=== PATIENT | female | born 1935 | race Caucasian/White ===

== ENCOUNTER → 2016-08-03 | Emergency (ER) | payer BC ==
[~2016-08-03] MED LIST: ALBUTEROL SO4 2.5/IPRATROPIUM 0.5 INH SOL 3 ML VIAL.NEB. NEB ONE; OSELTAMIVIR PHOSPHATE 75 MG CAPSULE ONE; OSELTAMIVIR PHOSPHATE 75 MG CAPSULE PO ONE
[2016-08-03 16:46] VITALS: BP 123/61; PULSE 74; TEMP 97.5; BMI 26.2
--- NOTE | 2016-08-03 17:32 | PDOC ---
History of Present Illness - General Chief Complaint: Respiratory Stated Complaint: REF BY DOCTOR Time Seen by Provider: 08/03/16 17:22 History Source: Patient Exam Limitations: No Limitations - History of Present Illness Initial Comments: CHIEF COMPLAINT: 80 y/o afebrile female with PMH HLD and osteoporosis sent in by Dr. Mitchell to r/o pneumonia. HISTORY OF PRESENT ILLNESS: The patient states she's had a productive cough of green sputum and fever for the past 2 days. She states her fever was 101 at the highest. She started a Zpack yesterday from Dr. Mitchell but when he saw her in the office today he was concerned for flu and pneumonia. He wanted her to come here for an xray. She has been taking tylenol for the fever. She denies earache, SILVESTRE, neck pain, n/v/d, CP, SOB, abd pain, back pain, hematuria, dysuria. Vital signs on arrival are notable for O2 sat of 96% on RA. REVIEW OF SYSTEMS: GENERAL/CONSTITUTIONAL: +fever to 101. No weakness. No weight change. HEAD, EYES, EARS, NOSE AND THROAT: No change in vision. No ear pain or discharge. No sore throat. CARDIOVASCULAR: No chest pain or shortness of breath. RESPIRATORY: +productive cough of green sputum. No wheezing or hemoptysis. GASTROINTESTINAL: See history of present illness. GENITOURINARY: No dysuria, frequency, or change in urination. MUSCULOSKELETAL: No joint or muscle swelling or pain. No neck or back pain. SKIN: No rash or easy bruising. NEUROLOGIC: No headache, vertigo, loss of consciousness, or loss of sensation. PHYSICAL EXAM: GENERAL: The patient is awake, alert, and fully oriented, in no acute distress. She has a wet, congested cough. HEAD: Normal with no signs of trauma. ENT: Pupils equal, round and reactive to light, extraocular movements intact, sclera anicteric, conjunctiva clear. Neck supple. LUNGS: Diffuse expiratory wheezing with rhonchorous sounds in right lung salazar. Normal excursion. No respiratory distress or use of accessory muscles. CV: RRR, S1/S2, no MRG. Cap refill < 2 sec. ABDOMEN: Soft, non-distended, non-tender even to deep palpation, no hepatomegaly or splenomegaly, no masses. EXTREMITIES: Normal range of motion, no edema. NEUROLOGICAL: Normal speech, normal gait. CN II-XII grossly intact. PSYCH: Normal mood, normal affect. SKIN: Warm, dry, normal turgor, no rashes or lesions noted. Past History - Past Medical History Allergies/Adverse Reactions: Allergies Allergy/AdvReac Type Severity Reaction Status Date / Time Penicillins Allergy Rash Verified 08/03/16 16:41 "ALL NARCOTICS" AdvReac Severe Vomiting Uncoded 08/03/16 16:41 Home Medications: Ambulatory Orders Simvastatin 20 mg PO DAILY 08/23/11 Zolpidem Tartrate [Zolpidem Tartrate ER] 6.25 mg PO HS 08/23/11 Acetaminophen [Tylenol .Extra-Strength -] 1,000 mg PO Q8H PRN #0 tablet Ascorbic Acid [Vitamin C -] 500 mg PO DAILY tablet 03/11/16 Cholecalciferol (Vitamin D3) [Vitamin D3 -] 1,000 unit PO BID tab 03/11/16 Docusate Sodium [Colace -] 100 mg PO Q8H PRN #0 capsule 03/11/16 Heparin - 5,000 unit SQ BID vial 03/11/16 Hydroxyzine HCl [Atarax -] 25 mg PO HS tablet 03/11/16 Levothyroxine [Synthroid -] 50 mcg PO DAILY@0700 tablet 03/11/16 Loratadine [Claritin -] 10 mg PO DAILY tablet 03/11/16 Pantoprazole Sodium [Protonix -] 40 mg PO ACBK tablet.ec 03/11/16 Nitrofurantoin Macrocrystal [Nitrofurantoin] 100 mg PO BID #9 capsule 03/16/16 Tramadol HCl [Ultram] 50 mg PO QID PRN #20 tablet MDD 4 03/16/16 Oseltamivir Phosphate [Tamiflu -] 75 mg PO BID #10 capsule 08/03/16 Anemia: No Asthma: No Cancer: Yes (1981 BREAST CANCER R) Cardiac Disorders: No CVA: No COPD: No CHF: No Dementia: No Diabetes: No GI Disorders: Yes (HIATAL HERNIA , REFLUX) Disorders: No HTN: No Hypercholesterolemia: Yes Liver Disease: No Seizures: No Thyroid Disease: No - Surgical History Abdominal Surgery: No Appendectomy: No Cardiac Surgery: No Cholecystectomy: Yes Lung Surgery: No Neurologic Surgery: No Orthopedic Surgery: No - Psycho/Social/Smoking Cessation Hx Anxiety: No Suicidal Ideation: No Smoking Status: No Smoking History: Never smoked Have you smoked in the past 12 months: No Number of Cigarettes Smoked Daily: 0 Hx Alcohol Use: No Drug/Substance Use Hx: No Substance Use Type: None Hx Substance Use Treatment: No *Physical Exam - Vital Signs Last Vital Signs Temp Pulse Resp BP Pulse Ox 97.5 F L 74 20 123/61 96 08/03/16 16:39 08/03/16 16:39 08/03/16 16:39 08/03/16 16:39 08/03/16 16:39 ED Treatment Course - LABORATORY CBC & Chemistry Diagram: 08/03/16 17:44 08/03/16 18:00 Medical Decision Making - Medical Decision Making A/P: 80 y/o afebrile female here to r/o pneumonia and flu. Plan is as follows: 1. Influenza 2. CXR 3. Labs 4. Duoneb CXR IMPRESSION: No acute pathology. Influenza A - Positive Dr. Mitchell stated that if the CXR is negative, d/c to home with rx for tamiflu and instruct patient to continue with zpack. Repeat lung exam reveals slight expiratory wheezing at bases but much improved. Will send rx for tamiflu to the patient's pharmacy. Instructed her to continue taking the zpack and continue taking tylenol every 4 hours for fever. Pt instructed to return to the ER with any worsening or concerning symptoms. The patient verbalizes understanding of all instructions, has no further questions and is awaiting discharge. *DC/Admit/Observation/Transfer Diagnosis at time of Disposition: Influenza due to influenza virus, type A, human - Discharge Dispostion Disposition: HOME Condition at time of disposition: Improved - Referrals Referrals: Bladimir Mitchell MD [Primary Care Provider] - Call tomorrow - Patient Instructions Printed Discharge Instructions: DI for Influenza -- Adult Additional Instructions: Discharge INstructions: -You have the flu -A prescription for Tamiflu was sent to your pharmacy; please take as directed -Continue taking the Z-pack prescribed by Dr. Mitchell -Take tylenol every 4 hours for fever -Drink at least 64oz of water daily -Follow up with Dr. Mitchell tomorrow -Return to the ER immediately with any worsening or concerning symptoms
[2016-08-03 18:24] LABS: BASOPHIL 0.3 % (0-2.0); EOSINOPHIL 0.6 % (0-4.5); MCHC 32.6 g/dl (32.0-36.0); MEAN PLT VOLUME 8.3 fl (7.5-11.1); NEUTROPHILS 75.4 % (42.8-82.8); PLATELET COUNT 189 K/MM3 (134-434); RDW 14.7 % (11.6-15.6); WHITE BLOOD COUNT 4.8 K/mm3 (4.0-10.0)
[2016-08-03 18:54] LABS: ALBUMIN 3.5 g/dl (3.4-5.0); ALK PHOS 60 U/L (45-117); ANION GAP 14 (8-16); BILIRUBIN,TOTAL 0.3 mg/dL (0.2-1.0); CALCIUM 8.2 mg/dL (8.5-10.1); CO2 24 mmol/L (21-32); COCKROFT - GAULT 57.6725; CREATININE 0.7 mg/dL (0.55-1.02); GLUCOSE,RANDOM 89 mg/dL (74-106); SGPT/ALT 17 U/L (12-78)
[2016-08-03 19:09] LABS: SGOT/AST 24 U/L (15-37)
== END | disposition home or self-care (01) ==
LOC: JER 16:36
PROC: 3E0F7GC Introduction of Other Therapeutic Substance into Respiratory Tract, Via Natural or Artificial Opening (ICD-10-PCS; principal; 2016-08-03)
DX: J09.X2 Influenza due to identified novel influenza A virus with other respiratory manifestations (principal); E78.00 Pure hypercholesterolemia, unspecified; Z85.3 Personal history of malignant neoplasm of breast
CPT/HCPCS: 36415; 71020-TC; 80053; 83605; 85025; 87804; 94640; 99281-25

== ENCOUNTER 2018-04-17 07:15 | Emergency (ER) | payer OTHER, BC ==
[2018-04-17 07:42] VITALS: TEMP 98.1; BMI 25.6
--- NOTE | 2018-04-17 07:51 | PDOC ---
History of Present Illness - General Chief Complaint: Constipation Stated Complaint: CONSTIPATON Time Seen by Provider: 04/17/18 07:51 - History of Present Illness Initial Comments: 04/17/18 08:00 82 year old woman with a past medical history of osteoporosis, breast cancer ( 1981), hiatal hernia, hypothyroidism who presents with 1 week of constipation. The patient reports that she takes Colace daily but since feeling constipated she started taking Miralax for two times a day for 4 days. She reports that she has been able to pass 1 hard piece of stool like a "pebble" every day for past 5 days. The patient has had decreased appetite for the past 2 days. 1 day ago she tried to give herself a fleet enema but reports she did not know how to do it and does not feel that it was effective and caused her hemorrhoid to bleed. She denies any abdominal pain, fever, burning with urination, blood in urine or stool. PMHX: as in HPI PSHX: no abdominal surgeries, prior back surgery Meds: levothyroxine, simvastatin, hydroxyzine, ranitidine Allergies: penicillin Tob: none PCP: Peter Past History - Past Medical History Allergies/Adverse Reactions: Allergies Allergy/AdvReac Type Severity Reaction Status Date / Time Penicillins Allergy Rash Verified 08/03/16 16:41 "ALL NARCOTICS" AdvReac Severe Vomiting Uncoded 08/03/16 16:41 Home Medications: Ambulatory Orders Simvastatin 20 mg PO DAILY 08/23/11 Acetaminophen [Tylenol .Extra-Strength -] 1,000 mg PO Q8H PRN #0 tablet Ascorbic Acid [Vitamin C -] 500 mg PO DAILY tablet 03/11/16 Cholecalciferol (Vitamin D3) [Vitamin D3 -] 1,000 unit PO BID tab 03/11/16 Docusate Sodium [Colace -] 100 mg PO Q8H PRN #0 capsule 03/11/16 Levothyroxine [Synthroid -] 50 mcg PO DAILY@0700 tablet 03/11/16 hydrOXYzine HCL [Atarax -] 25 mg PO HS tablet 03/11/16 Ranitidine [Zantac -] 150 mg PO DAILY 04/17/18 Anemia: No Asthma: No Cancer: Yes (1981 BREAST CANCER R) Cardiac Disorders: No CVA: No COPD: No CHF: No Dementia: No Diabetes: No GI Disorders: Yes (HIATAL HERNIA , REFLUX) Disorders: No HTN: No Hypercholesterolemia: Yes Liver Disease: No Seizures: No Thyroid Disease: No - Surgical History Abdominal Surgery: No Appendectomy: No Cardiac Surgery: No Cholecystectomy: Yes Lung Surgery: No Neurologic Surgery: No Orthopedic Surgery: No - Immunization History Immunization Up to Date: Yes - Suicide/Smoking/Psychosocial Hx Smoking Status: No Smoking History: Never smoked Have you smoked in the past 12 months: No Number of Cigarettes Smoked Daily: 0 Information on smoking cessation initiated: No Hx Alcohol Use: No Drug/Substance Use Hx: No Substance Use Type: None Hx Substance Use Treatment: No *Physical Exam - Vital Signs Last Vital Signs Temp Pulse Resp BP Pulse Ox 98.1 F 91 H 16 145/83 99 04/17/18 07:23 04/17/18 07:23 04/17/18 07:23 04/17/18 07:23 04/17/18 07:23 - Physical Exam Comments: 04/17/18 12:13 GENERAL: Awake, alert, and fully oriented, in no acute distress HEAD: No signs of trauma, normocephalic, atraumatic EYES: EOMI, sclera anicteric, conjunctiva clear ENT: oropharynx clear without exudates. Moist mucosa NECK: Normal ROM, supple LUNGS: No distress, speaks full sentences, clear to auscultation bilaterally HEART: Regular rate and rhythm, normal S1 and S2, no murmurs, rubs or gallops, peripheral pulses normal and equal bilaterally. ABDOMEN: Soft, nontender, normoactive bowel sounds. No guarding, no rebound. No masses EXTREMITIES : Normal inspection, Normal range of motion, no edema. No clubbing or cyanosis. NEUROLOGICAL: Cranial nerves II through XII grossly intact. Normal speech, normal gait, no focal sensorimotor deficits SKIN: Warm, Dry, normal turgor, no rashes or lesions noted Moderate Sedation - Procedure Monitoring Vital Signs: Procedure Monitoring Vital Signs Temperature 98.1 F 04/17/18 07:23 Pulse Rate 91 H 04/17/18 07:23 Respiratory Rate 16 04/17/18 07:23 Blood Pressure 145/83 04/17/18 07:23 O2 Sat by Pulse Oximetry (%) 99 04/17/18 07:23 ED Treatment Course - LABORATORY CBC & Chemistry Diagram: 04/17/18 08:45 04/17/18 08:55 Medical Decision Making - Medical Decision Making 04/17/18 08:26 ED Course: consider constipation vs diverticulitis vs partial sbo vs hypothroidism sbo less likely as passing gas and small stool 04/17/18 10:02 labwork [address] CT 04/17/18 12:17 CT: w/ large hiatal hernia, ventral hernia, diverticulosis, no diverticulitis, moderate fecal retention Will discharge with mary patient f/u with pcp and GI *DC/Admit/Observation/Transfer Diagnosis at time of Disposition: Constipation - Discharge Dispostion Disposition: HOME Condition at time of disposition: Stable Decision to Admit order: No - Referrals Referrals: Bladimir Mitchell MD [Primary Care Provider] - - Patient Instructions Printed Discharge Instructions: DI for Constipation Additional Instructions: You were seen in the ED for complaints of constipation. In the ED you were evaluated with with labwork and imaging. Your results did not show any acute findings but were significant for increased stool burden. There does not appear to be an acute need for immediate hospitalization. You are advised to follow up with your Primary Care Physician within 1 week. Please follow up with your Air Analysis Technician within 1 week You have been sent home with a solution called [place] Grain that you should drink to allow a bowel movement. Follow the instructions on how to prepare and drink the solution below Return to the ED immediately if you experience abdominal pain, blood in the stool or urine, vomiting, fevers, inability to pass gas, chest pain or shortness of breath - Do not eat sold food 3-4 hours prior to drinking the solution. - Drink one 8 ounce glass every ten minutes until the entire bottle is consumed. You should complete drinking - Drink the preparation with a straw; this may make it easier to consume. You may add the flavor packet provided with the medication, but do not add any additional flavoring to the liquid. - After completing the laxative preparation, do not take any food or water for 1 -2 hours. - If you experience vomiting, stop drinking the preparation for 20-30 minutes then restart and finish the remainder of the preparation. If you are unable to finish the remainder of the bowel preparation due to vomiting , call your film sound engineer or return to the ED - Once you start to have a bowel movement you should stop drinking the solution. - Post Discharge Activity
[2018-04-17 09:00] LABS: HEMATOCRIT 36.7 % (32.4-45.2); HEMOGLOBIN 12.5 GM/dL (10.7-15.3); MCHC 34.2 g/dl (32.0-36.0); MEAN CELL VOLUME 93.6 fl (80-96); MEAN PLT VOLUME 7.8 fl (7.5-11.1); PLATELET COUNT 261 K/MM3 (134-434); RBC 3.92 M/mm3 (3.60-5.2); RDW 13.9 % (11.6-15.6); WHITE BLOOD COUNT 4.8 K/mm3 (4.0-10.0)
[2018-04-17 09:42] LABS: ALK PHOS 64 U/L (45-117); ANION GAP 8 MMOL/L (8-16); BILIRUBIN,TOTAL 0.7 mg/dL (0.2-1); BLOOD UREA NITROGEN 14 mg/dL (7-18); CALCIUM 9.5 mg/dL (8.5-10.1); CHLORIDE 107 mmol/L (98-107); CO2 28 mmol/L (21-32); CREATININE 0.8 mg/dL (0.55-1.3); GLUCOSE,RANDOM 93 mg/dL (74-106); SGOT/AST 19 U/L (15-37); SGPT/ALT 18 U/L (13-61); SODIUM 142 mmol/L (136-145); TOT PROT 7.1 g/dl (6.4-8.2)
--- NOTE | 2018-04-17 10:01 | PDOC ---
Attending Attestation - Resident Resident Name: Mariana Gurrola - ED Attending Attestation I have performed the following: I have examined & evaluated the patient, The case was reviewed & discussed with the resident, I agree w/resident's findings & plan, Exceptions are as noted - HPI HPI: 82 yo F history hypothyroid, hiatal hernia, osteoporosis presents with constipation. She states she has chronic constipation, however, it is much worse recently. She added miralax to her typical regimen but it has not helped. No recent illness. Denies fever. Normal PO intake. - Physicial Exam PE: GENERAL: Awake, alert, and fully oriented, in no acute distress HEAD: No signs of trauma EYES: PERRLA, EOMI, sclera anicteric, conjunctiva clear ENT: Auricles normal inspection, hearing grossly normal, nares patent, oropharynx clear without exudates. Moist mucosa NECK: Normal ROM, supple, no lymphadenopathy, JVD, or masses LUNGS: Breath sounds equal, clear to auscultation bilaterally. No wheezes, and no crackles HEART: Regular rate and rhythm, normal S1 and S2, no murmurs, rubs or gallops ABDOMEN: Firm, nondistended, nontender. Normoactive bowel sounds. No guarding, no rebound. No masses EXTREMITIES: Normal range of motion, no edema. No clubbing or cyanosis. No cords, erythema, or tenderness NEUROLOGICAL: Cranial nerves II through XII grossly intact. Normal speech, normal gait. Motor and sensation intact SKIN: Warm, Dry, normal turgor, no rashes or lesions noted. - Medical Decision Making Pt with change in bowel habits, no change in diet, no recent illness. Will obtain CT to r/o an acute process.
[2018-04-17] MEDS ORDERED: PEG3350/SOD SULF,BICARB,CL/KCL 4,000 ML SOLN.RECON PO ONE (12:00)
[2018-04-17 13:15] VITALS: BP 144/72; PULSE 86
== END 2018-04-17 13:14 | disposition home or self-care (01) ==
LOC: JER 07:15
DX: K59.00 Constipation, unspecified (principal); K44.9 Diaphragmatic hernia without obstruction or gangrene; K43.9 Ventral hernia without obstruction or gangrene; E03.9 Hypothyroidism, unspecified; E78.00 Pure hypercholesterolemia, unspecified; K21.9 Gastro-esophageal reflux disease without esophagitis; K57.90 Diverticulosis of intestine, part unspecified, without perforation or abscess without bleeding; Z85.3 Personal history of malignant neoplasm of breast
CPT/HCPCS: 36415; 74177-TC; 80053; 84443; 85027; 99284-25

== ENCOUNTER 2018-12-14 09:38 | Emergency (ER) | payer OTHER, BC ==
[2018-12-14 09:51] VITALS: BP 112/76; PULSE 74; TEMP 97.8; BMI 25.6
--- NOTE | 2018-12-14 09:57 | PDOC ---
History of Present Illness - General Chief Complaint: Constipation Stated Complaint: CONSTIPATION Time Seen by Provider: 12/14/18 09:57 History Source: Patient, Family Past History - Past Medical History Allergies/Adverse Reactions: Allergies Allergy/AdvReac Type Severity Reaction Status Date / Time Penicillins Allergy Rash Verified 08/03/16 16:41 "ALL NARCOTICS" AdvReac Severe Vomiting Uncoded 08/03/16 16:41 Home Medications: Ambulatory Orders Simvastatin 20 mg PO DAILY 08/23/11 Acetaminophen [Tylenol .Extra-Strength -] 1,000 mg PO Q8H PRN #0 tablet Ascorbic Acid [Vitamin C -] 500 mg PO DAILY tablet 03/11/16 Cholecalciferol (Vitamin D3) [Vitamin D3 -] 1,000 unit PO BID tab 03/11/16 Docusate Sodium [Colace -] 100 mg PO Q8H PRN #0 capsule 03/11/16 Levothyroxine [Synthroid -] 50 mcg PO DAILY@0700 tablet 03/11/16 hydrOXYzine HCL [Atarax -] 25 mg PO HS tablet 03/11/16 Ranitidine [Zantac -] 150 mg PO DAILY 04/17/18 [id number]/Sod Sulf,Bicarb,Cl/KCl [Golytely Solution] 4,000 ml PO ONCE #1 soln.recon 12/14/18 [id number]/Sod Sulf,Bicarb,Cl/KCl [Golytely Solution] 4,000 ml PO ONCE #1 soln.recon 12/14/18 Anemia: No Asthma: No Cancer: Yes (1981 BREAST CANCER R) Cardiac Disorders: No CVA: No COPD: No CHF: No Dementia: No Diabetes: No GI Disorders: Yes (HIATAL HERNIA , REFLUX) Disorders: No HTN: No Hypercholesterolemia: Yes Liver Disease: No Seizures: No Thyroid Disease: No - Surgical History Abdominal Surgery: No Appendectomy: No Cardiac Surgery: No Cholecystectomy: Yes Lung Surgery: No Neurologic Surgery: No Orthopedic Surgery: No - Immunization History Immunization Up to Date: Yes - Psycho Social/Smoking Cessation Hx Smoking Status: No Smoking History: Never smoked Have you smoked in the past 12 months: No Number of Cigarettes Smoked Daily: 0 Information on smoking cessation initiated: No Hx Alcohol Use: No Drug/Substance Use Hx: No Substance Use Type: None Hx Substance Use Treatment: No *Physical Exam - Vital Signs Last Vital Signs Temp Pulse Resp BP Pulse Ox 97.8 F 74 16 112/76 99 12/14/18 09:47 12/14/18 09:47 12/14/18 09:47 12/14/18 09:47 12/14/18 09:47 Discharge - Discharge Information Problems reviewed: Yes Clinical Impression/Diagnosis: Constipation Qualifiers: Constipation type: unspecified constipation type Qualified Code(s): K59.00 - Constipation, unspecified Condition: Stable Disposition: HOME - Admission No - Additional Discharge Information Prescriptions: [id number]/Sod Sulf,Bicarb,Cl/KCl [Golytely Solution] 4,000 ml PO ONCE #1 soln.recon [id number]/Sod Sulf,Bicarb,Cl/KCl [Golytely Solution] 4,000 ml PO ONCE #1 soln.recon - Follow up/Referral Referrals: Bladimir Mitchell MD [Primary Care Provider] - - Patient Discharge Instructions Patient Printed Discharge Instructions: DI for Constipation Additional Instructions: You were evaluated in the emergency department for constipation. We are prescribing you a Golytely container. Please drink it over the course of one day , until you have a bowel movement. Please return to the Emergency Department if you develop fevers, chills, nausea, vomiting, are unable to eat or drink anything without vomiting, or develop severe abdominal pain. Make sure to follow up with your primary care doctor as soon as possible, in the next seven days. - Post Discharge Activity
[2018-12-14] MEDS ORDERED: MINERAL OIL ENEMA 133 ML ENEMA PR ONE (12:19)
--- NOTE | 2018-12-14 15:32 | PDOC ---
Attending Attestation - Resident Resident Name: Nicho Barrera - ED Attending Attestation I have performed the following: I have examined & evaluated the patient, The case was reviewed & discussed with the resident, I agree w/resident's findings & plan, Exceptions are as noted - HPI HPI: 12/14/18 15:35 83y F presenting with constipation. denies any abd pain, fever/chills, n/v, back pain, cp, sob. pt with recent travel to [place] hat altered her diet, also she has difficulty having BMs - Physicial Exam PE: 12/14/18 15:36 abd: soft nontender, no reboun/guarding, no cva tenderness rectal exam as documented - Medical Decision Making 12/14/18 15:36 rectal exam by resident showed hard stool - atempted mnual disempaction given mineral enema - with some reslus. will have pt fu with PMD/GI
== END 2018-12-14 15:49 | disposition home or self-care (01) ==
LOC: JER 09:38
DX: K59.00 Constipation, unspecified (principal); E78.00 Pure hypercholesterolemia, unspecified; Z85.3 Personal history of malignant neoplasm of breast
CPT/HCPCS: 99281-25

== ENCOUNTER 2019-09-27 06:38 | Day surgery (SDC) | payer OTHER, BC ==
[2019-09-27 07:26] VITALS: BMI 25.6
[2019-09-27 08:56] VITALS: TEMP 98
[2019-09-27 10:38] VITALS: BP 125/68; PULSE 70
--- NOTE | 2019-09-30 17:18 | PATH ---
Surgical Pathology Report Patient Name: REENA RAM [facility]. Rec. #: [id number] /Age/Gender: 1935 (Age: 83) / F Account: [id number] Location: ASU-ENDOSCOPY Taken: 09/27/2019 Received: 09/27/2019 Reported: 09/30/2019 Physicians: Chiara Stephens M.D. Specimen(s) Received A: HEPATIC FLEXURE POLYP B: SIGMOID POLYP C: POLYP @ 30CM SIGMOID Clinical History Colon cancer screening, positive cologuard Postoperative diagnosis: Colon polyps, diverticulosis Final Diagnosis A. COLON, HEPATIC FLEXURE, POLYP, BIOPSY: TUBULAR ADENOMA. B. SIGMOID COLON, POLYP, BIOPSY, POLYPECTOMY: POLYPOID COLONIC MUCOSA WITH LYMPHOID AGGREGATES, HEMORRHAGE, INCREASED EOSINOPHILS AND LYMPHOPLASMACYTIC INFILTRATE WITHIN LAMINA PROPRIA. C. SIGMOID COLON, POLYP, 30 CM, POLYPECTOMY: TUBULAR ADENOMA. Electronically Signed Arline Hancock M.D. Gross Description A. Received in formalin, labeled "biopsy hepatic flexure polyp" is a gaitan, irregular portion of soft tissue measuring 0.4 cm. in greatest dimension. The specimen is submitted in toto in one cassette. B. Received in formalin, labeled "biopsy sigmoid polyp" are 4 gaitan, irregular portions of soft tissue ranging from 0.3-0.4 cm. in greatest dimension. The specimens are submitted in toto in one cassette. C. Received in formalin, labeled "polyp at 30 cm sigmoid" are 4 gaitan, irregular to polypoid portions of soft tissue ranging from 0.2-0.6 cm. in greatest dimension. The specimens are submitted in toto in one cassette. /09/27/2019 saudi/09/27/2019
== END 2019-09-27 10:05 | disposition home or self-care (01) ==
LOC: JASU-ENDO 06:38
PROVIDERS: ATTEND Internal Medicine Gastroenterology
PROC: 0DBL8ZX Excision of Transverse Colon, Via Natural or Artificial Opening Endoscopic, Diagnostic (ICD-10-PCS; 2019-09-27)
PROC: 0DBN8ZX Excision of Sigmoid Colon, Via Natural or Artificial Opening Endoscopic, Diagnostic (ICD-10-PCS; principal; 2019-09-27 08:00)
DX: Z12.11 Encounter for screening for malignant neoplasm of colon (principal); D12.5 Benign neoplasm of sigmoid colon; D12.3 Benign neoplasm of transverse colon; K57.30 Diverticulosis of large intestine without perforation or abscess without bleeding
CPT/HCPCS: 88305-TC

== ENCOUNTER 2021-07-23 04:15 | Day surgery (SDC) | payer OTHER, BC ==
[2021-07-21 14:41] VITALS: BMI 25.6
[~2021-07-23 04:15] MED LIST changes: -ALBUTEROL SO4 2.5/IPRATROPIUM 0.5 INH SOL 3 ML VIAL.NEB. NEB ONE; +BUPIVACAINE HCL/PF 0.75% 10 ML VIAL NR ONE; +IOHEXOL 180 MG/1 ML ML IJ ONE; +LIDOCAINE HCL 1% PRESERVATIVE FREE - 30ML VIAL IJ ONE; -OSELTAMIVIR PHOSPHATE 75 MG CAPSULE ONE; -OSELTAMIVIR PHOSPHATE 75 MG CAPSULE PO ONE
[2021-07-23] MEDS ORDERED: LIDOCAINE HCL/PF 1% SDV 5ML VIAL ONE (07:19)
[2021-07-23] MEDS ORDERED: BUPIVACAINE HCL/PF 0.75% 10 ML VIAL ONE (07:19)
[2021-07-23] MEDS ORDERED: DEXAMETHASONE SOD PHOSPHATE 10 MG/1 ML VIAL ONE (07:20)
[2021-07-23] MEDS ORDERED: LIDOCAINE HCL 1% PRESERVATIVE FREE - 30ML VIAL IJ ONE ×2 (09:51)
[2021-07-23] MEDS ORDERED: IOHEXOL 180 MG/1 ML ML IJ ONE (09:52)
[2021-07-23] MEDS ORDERED: BUPIVACAINE HCL/PF 0.75% 10 ML VIAL NR ONE (09:55)
[2021-07-23 12:19] VITALS: BP 148/83; PULSE 84; TEMP 98
== END 2021-07-23 11:00 | disposition home or self-care (01) ==
LOC: JASU-SURG 04:15
PROVIDERS: ATTEND Pain Medicine Pain Medicine
PROC: 3E0T33Z Introduction of Anti-inflammatory into Peripheral Nerves and Plexi, Percutaneous Approach (ICD-10-PCS; 2021-07-23)
PROC: 3E0T3BZ Introduction of Anesthetic Agent into Peripheral Nerves and Plexi, Percutaneous Approach (ICD-10-PCS; principal; 2021-07-23 09:30)
DX: M47.816 Spondylosis without myelopathy or radiculopathy, lumbar region (principal)
CPT/HCPCS: 76000-TC-FY; J1100

== ENCOUNTER 2021-08-24 04:06 | Day surgery (SDC) | payer OTHER, BC ==
[2021-08-20 11:18] VITALS: BMI 25.6
[2021-08-24] MEDS ORDERED: LIDOCAINE HCL/PF 1% SDV 5ML VIAL ONE (07:08)
[2021-08-24] MEDS ORDERED: BUPIVACAINE HCL/PF 0.75% 10 ML VIAL ONE (07:08)
[2021-08-24] MEDS ORDERED: BUPIVACAINE HCL/PF 0.75% 10 ML VIAL NR ONE (08:30)
[2021-08-24] MEDS ORDERED: LIDOCAINE HCL 1% PRESERVATIVE FREE - 30ML VIAL IJ ONE ×3 (08:30)
[2021-08-24 09:36] VITALS: BP 154/75; PULSE 82; TEMP 97.1
== END 2021-08-24 09:20 | disposition home or self-care (01) ==
LOC: JASU-SURG 04:06
PROVIDERS: ATTEND Pain Medicine Pain Medicine
PROC: BR16YZZ Fluoroscopy of Lumbar Facet Joint(s) using Other Contrast (ICD-10-PCS; 2021-08-24)
PROC: 3E0T3BZ Introduction of Anesthetic Agent into Peripheral Nerves and Plexi, Percutaneous Approach (ICD-10-PCS; principal; 2021-08-24 08:00)
DX: M47.816 Spondylosis without myelopathy or radiculopathy, lumbar region (principal)
CPT/HCPCS: 76000-TC-FY

== ENCOUNTER 2021-10-01 04:00 | Day surgery (SDC) | payer OTHER, BC ==
[2021-09-29 16:43] VITALS: BMI 25.2
[2021-10-01] MEDS ORDERED: DEXAMETHASONE SOD PHOSPHATE 10 MG/1 ML VIAL ONE (07:38)
[2021-10-01] MEDS ORDERED: LIDOCAINE HCL/PF 1% SDV 5ML VIAL ONE (07:38)
[2021-10-01] MEDS ORDERED: LIDOCAINE HCL/PF 2% SDV 5ML VIAL ONE ×2 (07:41→07:46)
[2021-10-01] MEDS ORDERED: BUPIVACAINE HCL/PF 0.75% 10 ML VIAL NR ONE (11:32)
[2021-10-01] MEDS ORDERED: DEXAMETHASONE SOD PHOSPHATE 10 MG/1 ML VIAL IVPUSH ONE (11:33)
[2021-10-01] MEDS ORDERED: LIDOCAINE HCL/PF 2% SDV 5ML VIAL INF ONE (11:38)
[2021-10-01] MEDS ORDERED: LIDOCAINE HCL 1%, 10 MG/ML (50 mL VIAL) NR ONE (11:38)
[2021-10-01] MEDS ORDERED: LIDOCAINE HCL 2% (50ML VIAL) NR ONE ×2 (11:38)
[2021-10-01] MEDS ORDERED: LIDOCAINE HCL 1% PRESERVATIVE FREE - 30ML VIAL IJ ONE (11:46)
[2021-10-01 13:15] VITALS: BP 129/75; PULSE 86; TEMP 97.1
== END 2021-10-01 13:05 | disposition home or self-care (01) ==
LOC: JASU-SURG 04:00
PROVIDERS: ATTEND Pain Medicine Pain Medicine
PROC: 3E0T3TZ Introduction of Destructive Agent into Peripheral Nerves and Plexi, Percutaneous Approach (ICD-10-PCS; principal; 2021-10-01 10:00)
PROC: BR16YZZ Fluoroscopy of Lumbar Facet Joint(s) using Other Contrast (ICD-10-PCS; 2021-10-01 10:00)
DX: M47.816 Spondylosis without myelopathy or radiculopathy, lumbar region (principal)
CPT/HCPCS: 76000-TC-FY; J1100

== ENCOUNTER 2021-11-02 04:25 | Day surgery (SDC) | payer OTHER, BC ==
[2021-10-28 12:18] VITALS: BMI 25.2
[2021-11-02] MEDS ORDERED: DEXAMETHASONE SOD PHOSPHATE 10 MG/1 ML VIAL ONE (07:32)
[2021-11-02] MEDS ORDERED: BUPIVACAINE HCL/PF 0.75% 10 ML VIAL ONE (07:32)
[2021-11-02] MEDS ORDERED: BUPIVACAINE HCL/PF 0.75% 10 ML VIAL NR ONE (10:59)
[2021-11-02] MEDS ORDERED: LIDOCAINE HCL 1% PRESERVATIVE FREE - 30ML VIAL IJ ONE (10:59)
[2021-11-02] MEDS ORDERED: LIDOCAINE HCL/PF 2% SDV 5ML VIAL INF ONE (10:59)
[2021-11-02] MEDS ORDERED: DEXAMETHASONE SOD PHOSPHATE 10 MG/1 ML VIAL IVPUSH ONE (10:59)
[2021-11-02 11:50] VITALS: RESP 20
[2021-11-02 12:47] VITALS: BP 160/70; PULSE 70; TEMP 97
== END 2021-11-02 12:20 | disposition home or self-care (01) ==
LOC: JASU-SURG 04:25
PROVIDERS: ATTEND Pain Medicine Pain Medicine
PROC: 3E0T3TZ Introduction of Destructive Agent into Peripheral Nerves and Plexi, Percutaneous Approach (ICD-10-PCS; principal; 2021-11-02 11:00)
PROC: BR16YZZ Fluoroscopy of Lumbar Facet Joint(s) using Other Contrast (ICD-10-PCS; 2021-11-02 11:00)
DX: M47.816 Spondylosis without myelopathy or radiculopathy, lumbar region (principal)
CPT/HCPCS: 76000-TC-FY; J1100

== ENCOUNTER 2021-11-23 09:08 | Observation (INO) | payer OTHER, BC ==
[2021-11-23] MEDS ORDERED: FAMOTIDINE 20 MG/50 ML IVPB 20 MG/50 ML MG IVPB ONE ×4 (10:08→14:31)
[2021-11-23] MEDS ORDERED: VANCOMYCIN 1 GM in D5W (PRE-DOCKED) 1,000 MG/250 ML IVPB ONE (10:13)
[2021-11-23 11:17] LABS: CALCIUM 9.1 mg/dL (8.5-10.1)
[2021-11-23 11:18] LABS: ALBUMIN 3.9 g/dl (3.4-5.0); BASO % 0.6 % (0-2.0); BLOOD UREA NITROGEN 16.6 mg/dL (7-18); EOS % 0.1 % (0-4.5); HEMATOCRIT 37.9 % (32.4-45.2); HEMOGLOBIN 12.4 GM/dL (10.7-15.3); LYMPH % 8.9 % (8-40); MCH 30.1 pg (25.7-33.7); MCHC 32.7 g/dl (32.0-36.0); MONO % 4.9 % (3.8-10.2); NEUT % 85.5 % (42.8-82.8); PLATELET COUNT 312 10^3/uL (134-434); RBC 4.12 M/mm3 (3.60-5.2); RDW 14.3 % (11.6-15.6); WHITE BLOOD COUNT 7.4 K/mm3 (4.0-10.0)
[2021-11-23 11:21] LABS: CREATININE 0.7 mg/dL (0.55-1.3)
[2021-11-23 11:22] LABS: BILIRUBIN,TOTAL 0.9 mg/dL (0.2-1)
[2021-11-23 11:23] LABS: TOT PROT 7.6 g/dl (6.4-8.2)
[2021-11-23 11:24] LABS: EPI CELLS 1 /uL (0-25.1); HYALINE CASTS 0 /uL (0-3.1); PH,URINE 6.5 (5.0-8.0); URINE APPEARANCE CLEAR; URINE BACTERIA 31 /uL (0-1359); URINE BILIRUBIN NEGATIVE (NEGATIVE); URINE COLOR YELLOW; URINE GLUCOSE (UA) NEGATIVE (NEGATIVE); URINE KETONE TRACE (NEGATIVE); URINE LEUK ESTERASE NEGATIVE (NEGATIVE); URINE NITRITE NEGATIVE (NEGATIVE); URINE PROTEIN NEGATIVE (NEGATIVE); URINE RBC 15 /uL (0-23.9); URINE UROBILINOGEN 0.2 mg/dL (0.2-1.0); URINE WBC 4 /uL (0-25.8)
[2021-11-23] MEDS ORDERED: CLINDAMYCIN HCL 150 MG CAPSULE (FP) PO ONE (11:34)
[2021-11-23] MEDS ORDERED: CLINDAMYCIN HCL 150 MG CAPSULE (FP) ONE (11:42)
[2021-11-23] MEDS ORDERED: ACETAMINOPHEN 1000 MG/100 ML BAG IVPB ONE (16:15)
[2021-11-23] MEDS ORDERED: ACETAMINOPHEN INJECTION 100 ML IVPB ONE (16:17)
[2021-11-23 19:51] VITALS: RESP 18
[2021-11-23 21:00] VITALS: BMI 25.5
[2021-11-23] MEDS ORDERED: ATORVASTATIN CA 10 MG TABLET (FP) PO SCH (22:00)
[2021-11-23 22:27] LABS: BASO % 0.7 % (0-2.0); EOS % 0.8 % (0-4.5); HEMATOCRIT 34.3 % (32.4-45.2); HEMOGLOBIN 11.4 GM/dL (10.7-15.3); LYMPH % 13.6 % (8-40); MCH 30.2 pg (25.7-33.7); MCHC 33.2 g/dl (32.0-36.0); MEAN PLT VOLUME 7.7 fl (7.5-11.1); MONO % 8.9 % (3.8-10.2); PLATELET COUNT 284 10^3/uL (134-434); RBC 3.77 M/mm3 (3.60-5.2); RDW 14.2 % (11.6-15.6); WHITE BLOOD COUNT 6.7 K/mm3 (4.0-10.0)
[2021-11-23 22:34] LABS: INR 1.15 (0.83-1.09); PROTHROMBIN TIME (PATIENT) 13.2 SEC (9.7-13.0)
[2021-11-23 22:37] LABS: ACTIVATED PTT 28.3 SECONDS (25.2-36.5)
[2021-11-24] MEDS ORDERED: LEVOTHYROXINE NA 50 MCG TABLET (FP) PO SCH (07:00)
[2021-11-24 08:51] LABS: BASO % 0.6 % (0-2.0); EOS % 1.2 % (0-4.5); HEMATOCRIT 34.4 % (32.4-45.2); HEMOGLOBIN 11.5 GM/dL (10.7-15.3); LYMPH % 12.5 % (8-40); MCH 30.5 pg (25.7-33.7); MCHC 33.4 g/dl (32.0-36.0); MEAN CELL VOLUME 91.3 fl (80-96); MEAN PLT VOLUME 8.2 fl (7.5-11.1); MONO % 9.1 % (3.8-10.2); NEUT % 76.6 % (42.8-82.8); PLATELET COUNT 292 10^3/uL (134-434); RBC 3.77 M/mm3 (3.60-5.2); RDW 14.1 % (11.6-15.6); WHITE BLOOD COUNT 5.4 K/mm3 (4.0-10.0)
[2021-11-24] MEDS ORDERED: ACETAMINOPHEN 1000 MG/100 ML BAG IVPB PRN (08:52)
[2021-11-24 08:56] LABS: INR 1.1 (0.83-1.09); PROTHROMBIN TIME (PATIENT) 12.7 SEC (9.7-13.0)
[2021-11-24 08:59] LABS: ACTIVATED PTT 27.8 SECONDS (25.2-36.5)
[2021-11-24 09:12] LABS: CALCIUM 8.7 mg/dL (8.5-10.1)
[2021-11-24 09:13] LABS: ALBUMIN 3.3 g/dl (3.4-5.0); BLOOD UREA NITROGEN 11.9 mg/dL (7-18); MAGNESIUM 1.7 mg/dL (1.8-2.4)
[2021-11-24 09:15] LABS: PHOSPHOROUS 3.4 mg/dL (2.5-4.9)
[2021-11-24 09:16] LABS: CREATININE 0.6 mg/dL (0.55-1.3)
[2021-11-24 09:17] LABS: BILIRUBIN,TOTAL 1.2 mg/dL (0.2-1); TOT PROT 6.2 g/dl (6.4-8.2)
[2021-11-24] MEDS ORDERED: ENOXAPARIN NA (PORCINE) 40 MG/0.4 ML DISP.SYRIN SQ SCH (10:00)
[2021-11-24 11:18] VITALS: BP 147/68; PULSE 83; TEMP 98.7
== END 2021-11-24 13:15 | disposition home or self-care (01) ==
LOC: JER 09:08 → JERBED 13:13 → J7W 18:42
PROVIDERS: ADMIT Internal Medicine; ATTEND Internal Medicine
PROC: 3E033NZ Introduction of Analgesics, Hypnotics, Sedatives into Peripheral Vein, Percutaneous Approach (ICD-10-PCS; principal; 2021-11-23)
PROC: 3E033GC Introduction of Other Therapeutic Substance into Peripheral Vein, Percutaneous Approach (ICD-10-PCS; 2021-11-23)
DX: E78.00 Pure hypercholesterolemia, unspecified (principal); K21.9 Gastro-esophageal reflux disease without esophagitis; Z85.3 Personal history of malignant neoplasm of breast; R42 Dizziness and giddiness; R53.81 Other malaise; Z88.0 Allergy status to penicillin; Z88.6 Allergy status to analgesic agent; R21 Rash and other nonspecific skin eruption; Z29.8 Encounter for other specified prophylactic measures; W18.39XA Other fall on same level, initial encounter; Y93.89 Activity, other specified; Y92.89 Other specified places as the place of occurrence of the external cause
CPT/HCPCS: 36415; 70450-TC; 70486-TC; 71045-TC-FY; 72125-TC; 72128-TC; 72131-TC; 72170-TC-FY; 80053; 81003; 82962; 83735; 84100; 84436; 84443; 84484; 85025; 85610; 85730; 87086; 93005; 93010; 96365; 96375; 97116-GP; 97161-GP; 99285-25; C9803-CS; G0378; U0003; U0005

== ENCOUNTER → 2022-02-18 | Day surgery (SDC) | payer OTHER, BC ==
[~2022-02-18] MED LIST changes: +BUPIVACAINE HCL/PF 0.5% (5MG/ML) 10 ML VIAL ONE; -BUPIVACAINE HCL/PF 0.75% 10 ML VIAL NR ONE; -IOHEXOL 180 MG/1 ML ML IJ ONE; -LIDOCAINE HCL 1% PRESERVATIVE FREE - 30ML VIAL IJ ONE; +LIDOCAINE HCL/PF 1% SDV 5ML VIAL ONE; +TRIAMCINOLONE ACET 40MG/1ML VIAL ONE
== END | disposition home or self-care (01) ==
LOC: JASU-SURG 04:16
PROVIDERS: ATTEND Pain Medicine Pain Medicine
DX: Z53.9 Procedure and treatment not carried out, unspecified reason (principal)

== ENCOUNTER 2022-07-21 07:35 | Emergency (ER) | payer OTHER, BC ==
[2022-07-21 07:46] VITALS: BP 165/83; PULSE 89; RESP 16; TEMP 98.3; BMI 24.2
[2022-07-21 08:26] LABS: THROAT:GRP A STREP NOT DETECTED (NOTDETECTED)
== END 2022-07-21 08:09 | disposition home or self-care (01) ==
LOC: JERFT 07:35
DX: J34.89 Other specified disorders of nose and nasal sinuses (principal); R06.7 Sneezing; J00 Acute nasopharyngitis [common cold]; Z20.822 Contact with and (suspected) exposure to COVID-19
CPT/HCPCS: 0241U-QW; 87651; 99283-25

== ENCOUNTER 2023-02-07 03:52 | Day surgery (SDC) | payer OTHER, BC ==
[2023-02-02 16:22] VITALS: BMI 23.8
[2023-02-07] MEDS ORDERED: LIDOCAINE HCL/PF 1% SDV 5ML VIAL ONE (07:09)
[2023-02-07] MEDS ORDERED: BUPIVACAINE HCL/PF 0.5% (5MG/ML) 10 ML VIAL ONE (07:09)
[2023-02-07] MEDS ORDERED: TRIAMCINOLONE ACET 40MG/1ML VIAL ONE (07:20)
[2023-02-07] MEDS ORDERED: TRIAMCINOLONE ACETONIDE 40 MG/ML 10 ML VIAL IJ ONE (09:59)
[2023-02-07] MEDS ORDERED: BUPIVACAINE HCL/PF 0.5% (5 MG/ML) 30 ML VIAL IJ ONE (09:59)
[2023-02-07] MEDS ORDERED: LIDOCAINE 1% P/F 10 MG/ML VIAL INF ONE (09:59)
[2023-02-07] MEDS ORDERED: IOHEXOL 180 MG/1 ML ML IJ ONE (09:59)
[2023-02-07 10:20] VITALS: BP 166/82; PULSE 81; RESP 18; TEMP 97.9
[2023-02-07] MEDS ORDERED: ACETAMINOPHEN 500 MG TABLET (FP) PO PRN (12:53)
== END 2023-02-07 10:53 | disposition home or self-care (01) ==
LOC: JASU-SURG 03:52
PROVIDERS: ATTEND Pain Medicine Pain Medicine
PROC: 3E0U3BZ Introduction of Anesthetic Agent into Joints, Percutaneous Approach (ICD-10-PCS; 2023-02-07)
PROC: 3E0U33Z Introduction of Anti-inflammatory into Joints, Percutaneous Approach (ICD-10-PCS; principal; 2023-02-07 10:30)
DX: M53.3 Sacrococcygeal disorders, not elsewhere classified (principal)
CPT/HCPCS: 76000-TC-FY

== ENCOUNTER 2023-05-03 13:32 | Emergency (ER) | payer OTHER, BC ==
[2023-05-03 13:38] VITALS: BP 117/56; PULSE 104; RESP 20; TEMP 100.5; BMI 25.3
[2023-05-03] MEDS ORDERED: ACETAMINOPHEN 325 MG TABLET (FP) ONE (14:27)
[2023-05-03] MEDS: ACETAMINOPHEN 500 MG TABLET (FP) PO ONE (14:30)
== END 2023-05-03 15:48 | disposition home or self-care (01) ==
LOC: FER 13:32
DX: R05.9 Cough, unspecified (principal); R09.89 Other specified symptoms and signs involving the circulatory and respiratory systems; R50.9 Fever, unspecified; R00.0 Tachycardia, unspecified; Z20.822 Contact with and (suspected) exposure to COVID-19
CPT/HCPCS: 0241U-QW; 71046-TC-FY; 99284-25

== ENCOUNTER 2023-06-01 07:45 | Emergency (ER) | payer OTHER, BC ==
[2023-06-01 08:04] VITALS: BP 186/88; PULSE 96; RESP 18; TEMP 99.3; BMI 24.6
[2023-06-01] MEDS ORDERED: ALBUTEROL SO4 2.5/IPRATROPIUM 0.5 INH SOL 3 ML VIAL.NEB. NEB ONE (08:39)
[2023-06-01] MEDS: ALBUTEROL SO4 2.5/IPRATROPIUM 0.5 INH SOL 3 ML VIAL.NEB. NEB ONE (08:48)
[2023-06-01] MEDS: ALBUTEROL SO4 HFA INHALER IH ONE (09:17)
[2023-06-01] MEDS ORDERED: ALBUTEROL SO4 HFA INHALER IH ONE (09:17)
== END 2023-06-01 09:22 | disposition home or self-care (01) ==
LOC: FER 07:45
PROC: 3E0F7GC Introduction of Other Therapeutic Substance into Respiratory Tract, Via Natural or Artificial Opening (ICD-10-PCS; principal; 2023-06-01)
PROC: 3E0F7GC Introduction of Other Therapeutic Substance into Respiratory Tract, Via Natural or Artificial Opening (ICD-10-PCS; 2023-06-01)
DX: R05.9 Cough, unspecified (principal); R09.81 Nasal congestion; J06.9 Acute upper respiratory infection, unspecified; Z20.822 Contact with and (suspected) exposure to COVID-19
CPT/HCPCS: 0241U-QW; 71046-TC-FY; 99284-25

== ENCOUNTER 2023-09-24 05:37 | Emergency (ER) | payer OTHER, BC ==
[2023-09-24 05:47] VITALS: BP 122/71; PULSE 104; RESP 20; TEMP 98; BMI 29.7
== END 2023-09-24 08:09 | disposition home or self-care (01) ==
LOC: JER 05:37
DX: R05.9 Cough, unspecified (principal); Z20.822 Contact with and (suspected) exposure to COVID-19
CPT/HCPCS: 0241U-QW; 93005; 93010; 99284-25